=== PATIENT | female | born 1940 | race Asian ===

== ENCOUNTER 2023-02-07 07:52 | Emergency (ER) | payer MEDICARE, OTHER ==
[~2023-02-07] VITALS: Ht 144.8 cm; Wt 57.1 kg
[2023-02-07 07:59] VITALS: TEMP 98.6
[2023-02-07] MEDS ORDERED: MEMA10TA11 PO (08:06)
[2023-02-07] MEDS ORDERED: PANT-31 PO (08:06)
[2023-02-07] MEDS ORDERED: ASPI-1450 PO (08:06)
[2023-02-07] MEDS ORDERED: AMLO-257 PO (08:06)
[2023-02-07] MEDS ORDERED: METF-1211 PO (08:06)
[2023-02-07] MEDS ORDERED: OLME40TA70 PO (08:06)
[2023-02-07] MEDS ORDERED: ROSU10TA72 PO (08:06)
[2023-02-07] MEDS ORDERED: LORA10TA7 PO (08:06)
[2023-02-07] MEDS ORDERED: ACETAMINOPHEN 500 MG TABLET PO ONE (08:15)
[2023-02-07 08:22] LABS: COVID AG,FIA SOURCE NASAL SWAB
[2023-02-07 08:48] LABS: INFLUENZA TYPE A NEGATIVE FOR TYPE A (NEGATIVE); INFLUENZA TYPE B POSITIVE FOR TYPE B (NEGATIVE); RESPIRATORY SYNCYTIAL VIRS,FIA NEGATIVE (Negative)
[2023-02-07 08:55] LABS: SARS-COV2 (COVID) ANTIGEN,FIA Positive (Negative)
[2023-02-07] MEDS ORDERED: BENZ-227 PO (09:00)
[2023-02-07 10:10] VITALS: BP 145/85; PULSE 94; RESP 18
== END 2023-02-07 10:44 | disposition home or self-care (01) ==
LOC: EMS 07:53
DX: U07.1 COVID-19 (principal); J10.1 Influenza due to other identified influenza virus with other respiratory manifestations; R07.89 Other chest pain; E11.9 Type 2 diabetes mellitus without complications; I10 Essential (primary) hypertension
CPT/HCPCS: 71045; 87420; 87804; 99284